=== PATIENT | female | born 1975 | race Caucasian/White ===

== ENCOUNTER 2020-09-20 13:15 | Inpatient (IN) | payer BC ==
[~2020-09-20] VITALS: Ht 172.7 cm; Wt 181.8 kg
[2020-09-20 14:19] LABS: HEMATOCRIT 43.2 % (37.0-47.0); HEMOGLOBIN 14.3 g/dl (12.5-16.0); MEAN CELL VOLUME 89 fl (80.0-100.0); MEAN CORPUSCULAR HEMOGLOBIN 29 pg (27.0-31.0); MEAN CORPUSCULAR HGB CONC 33 g/dl (33.0-37.0); MEAN PLATELET VOLUME 10.3 fl (7.4-10.4); PLATELET COUNT 481 K/mm3 (130-400); RED BLOOD COUNT 4.87 M/mm3 (4.10-5.30); REDCELL DISTRIBUTION WIDTH-CV 16.4 % (11.5-14.5)
[2020-09-20 15:00] LABS: ANISOCYTOSIS 1+; BAND 12 % (0-10); EOSINOPHIL 1 % (0-4); LYMPHOCYTE 6 % (20.0-51.0); NEUTROPHILS 81 % (42.0-75.2); PLATELET ESTIMATE INCREASED (NORMAL)
[2020-09-20 15:53] LABS: COLLECTION METHOD CATHETER
[2020-09-20 16:01] LABS: MUCOUS Present /lpf; PH 6 (5-8); SQUAMOUS EPITHELIAL None Seen /hpf; URINE APPEARANCE Cloudy; URINE BACTERIA None Seen /hpf; URINE BILIRUBIN Negative (NEGATIVE); URINE BLOOD 3+ (NEGATIVE); URINE COLOR Red; URINE GLUCOSE Negative (NEGATIVE); URINE KETONE Trace (NEGATIVE); URINE LEUKOCYTE ESTERASE 1+ (NEGATIVE); URINE NITRATE Negative (NEGATIVE); URINE PROTEIN(semi-quant) 2+ (NEGATIVE); URINE RBC >50 /hpf; URINE UROBILINOGEN Negative (NEGATIVE)
--- NOTE | 2020-09-20 20:20 | NUR ---
awake, alert, oriented x 4, able to make needs known, oriented to room, ambulates with sba, bilateral lower extremity lymphedema noted, updated on plan of care- verbalized understanding, reviewed privacy password, visiting hours and mask restrictions with patient and family- verbalized understanding.
[2020-09-20 23:08] LABS: ALBUMIN 3.4 gm/dL (3.5-5.0); BILIRUBIN,TOTAL 1.2 mg/dL (0.0-1.0); CALCIUM 8.8 mg/dL (8.4-10.2); CREATININE, serum 1.15 (0.52-1.25); POTASSIUM 3.9 mmol/L (3.4-5.0); TOTAL PROTEIN 6.8 gm/dL (6.4-8.2)
[2020-09-20 23:42] LABS: C-REACTIVE PROTEIN 20.7 mg/dL (0.0-0.9)
[2020-09-21 00:22] VITALS: BP 117/63; PULSE 114; TEMP 100
--- NOTE | 2020-09-21 00:40 | NUR ---
Call placed to Marley Kumar re: shivering, elevated temp, NON: see orders at this time. Updated patient on plan of care.
--- NOTE | 2020-09-21 02:33 | NUR ---
Vancomycin Initial Dosing Pharmacy Note Ordering provider: Gracie Griffith M, MD Indication/duration: Sepsis 2nd to UTI and possible foot infection Relevant comorbidities: HTN LABS: WBC = 37.2, SCr = 1.15 Recommendation: Will draw troughs and follow levels. Loading dose: 2 grams Maintenance dose: 1.75 grams every 12 hours Trough goal: 10-15 ug/mL
[2020-09-21 04:59] VITALS: BP 121/53; PULSE 78; TEMP 98
[2020-09-21 07:13] VITALS: BP 137/55; PULSE 80; TEMP 98.1
--- NOTE | 2020-09-21 09:16 | NUR ---
DOMO met with the patient and her , Marcus (ph#[phone]), to discuss discharge plan. The patient lives in [place] with her . She reports independence with ADLs and has a cane and walker available, if needed. The patient's PCP is Dr. Sourav Killian and she receives her medications from [facility]. She reports no difficulties obtaining her meds. The patient does not have a DPOA-HC and she was not interested in completing one at this time. The patient plans to return home with her upon discharge. The patient has a possible infected left heel wound. SW to continue to monitor. *Discharge plan: home with *
--- NOTE | 2020-09-21 09:30 | NUR ---
Pt assessment complete. Pt is laying in bed upon entry, she is A/O x4. Her breathing is even unlabored on RA. Pt denies SOB. Currently no pain, but reports coldness to LLE, N/T. No N/V, pt upset about her carb controlled diet stating she is not a diabetic. Discussed POC with patient and her . No further needs, call light within reach.
--- NOTE | 2020-09-21 10:39 | NUR ---
Initial visit; Patient thanked [employer] for looking in on her and keeping her in [employer]'s prayers.
[2020-09-21 11:13] VITALS: BP 142/51; PULSE 79; TEMP 100.2
[2020-09-21 14:38] LABS: BASO # 0.1 (0.0-0.2); BASO % 0.4 % (0.0-2.0); EOS # 0.1 (0.0-0.7); EOS % 0.6 % (0-4.0); GRAN % 80.9 % (42.2-75.2); LYMPH # 1.4 (1.2-3.4); LYMPH % 11.2 % (20.0-51.0); MEAN CELL VOLUME 89 fl (80.0-100.0); MEAN CORPUSCULAR HGB CONC 32 g/dl (33.0-37.0); MEAN PLATELET VOLUME 10.4 fl (7.4-10.4); MONO # 0.8 (0.1-0.6); MONO % 6.6 % (1.7-9.3); PLATELET COUNT 396 K/mm3 (130-400); RED BLOOD COUNT 4.07 M/mm3 (4.10-5.30); REDCELL DISTRIBUTION WIDTH-CV 16.3 % (11.5-14.5)
[2020-09-21 14:39] LABS: HEMATOCRIT 36.2 % (37.0-47.0); HEMOGLOBIN 11.5 g/dl (12.5-16.0); MEAN CORPUSCULAR HEMOGLOBIN 28 pg (27.0-31.0)
[2020-09-21 14:49] LABS: CALCIUM 8.8 mg/dL (8.4-10.2); CREATININE, serum 0.83 (0.52-1.25); POTASSIUM 3.9 mmol/L (3.4-5.0)
--- NOTE | 2020-09-21 15:48 | NUR ---
Report given to RUSH Osman.
[2020-09-21 16:42] VITALS: BP 130/40; PULSE 112; TEMP 98.2
--- NOTE | 2020-09-21 17:00 | NUR ---
Patient has had an ok day. PRN tylenol given for a headache rated a 5/10. Scheduled medications given. Dr. Elmore scraped calluses off of patient's left foot. Stage 1 ulcer measuring 10 mm by 7 mm located on the bottom of patient's left foot. Dressed with gauze and gauze wrap. Patient denies any further pain, discomfort, or needs at this time. Will continue to monitor. Call light in reach.
[2020-09-21 19:45] VITALS: BP 128/57; PULSE 88; TEMP 96.8
--- NOTE | 2020-09-21 20:37 | NUR ---
ALERT AND OX4. LEFT FOOT WRAPPED IN KERLEX AND GUAZE AFTER ORTHO CLEANED UP CALUS PRIOR TO SHIFT CHANGE. DENIES ANY PAIN IN FOOT, DOES HAVE GOOD BUT TOOK TYL AT 5PM THIS EVENING. PT REQ TO BE LEFT ALONE THIS GINA, PM MEDS GIVEN ALONG W VITALS. LIGHT DOWN. DOOR CLOSED. NEEDS MET.
[2020-09-22 04:44] VITALS: BP 123/57; PULSE 73; TEMP 98.6
[2020-09-22 07:05] LABS: BASO % 0.5 % (0.0-2.0); EOS # 0.1 (0.0-0.7); EOS % 1.1 % (0-4.0); GRAN # 6.5 (1.4-6.5); GRAN % 73.6 % (42.2-75.2); HEMATOCRIT 36.4 % (37.0-47.0); HEMOGLOBIN 11.6 g/dl (12.5-16.0); LYMPH # 1.5 (1.2-3.4); LYMPH % 16.5 % (20.0-51.0); MEAN CELL VOLUME 89 fl (80.0-100.0); MEAN CORPUSCULAR HEMOGLOBIN 29 pg (27.0-31.0); MEAN CORPUSCULAR HGB CONC 32 g/dl (33.0-37.0); MEAN PLATELET VOLUME 10.7 fl (7.4-10.4); MONO # 0.7 (0.1-0.6); MONO % 7.8 % (1.7-9.3); PLATELET COUNT 373 K/mm3 (130-400); RED BLOOD COUNT 4.07 M/mm3 (4.10-5.30); REDCELL DISTRIBUTION WIDTH-CV 16.2 % (11.5-14.5)
[2020-09-22 07:17] LABS: CREATININE, serum 0.82 (0.52-1.25); POTASSIUM 3.9 mmol/L (3.4-5.0)
[2020-09-22 07:59] VITALS: BP 144/74; PULSE 74; TEMP 99
[2020-09-22] MEDS ORDERED: DOXYCYCLINE HY100 MG PO (10:05)
[2020-09-22 12:06] VITALS: BP 130/60; PULSE 78; TEMP 98.8
--- NOTE | 2020-09-22 14:56 | NUR ---
Scheduled medications given. Shift assessment preformed. Patient given a PRN tylenol for a headache rated a 4/10. Increased erythema noted on left lower extremity. ABDIFATAH Dinh notified. PICC line DC'd by RUSH Aguilar. Discharge instructions/education given. Patient denies any further questions or concerns. VSS.
--- NOTE | 2020-09-22 15:20 | NUR ---
Patient escorted from building by [facility] via wheelchair.
== END 2020-09-22 15:21 | disposition home or self-care (01) | DRG 872 ==
LOC: COL.ER 13:15 → MEDICAL 17:15
PROVIDERS: Nurse Practitioner; ADMIT Internal Medicine
PROC: 02HV33Z Insertion of Infusion Device into Superior Vena Cava, Percutaneous Approach (ICD-10-PCS; principal; 2020-09-21)
DX: A41.9 Sepsis, unspecified organism (principal); N39.0 Urinary tract infection, site not specified; D64.9 Anemia, unspecified; E28.2 Polycystic ovarian syndrome; E66.01 Morbid (severe) obesity due to excess calories; G47.33 Obstructive sleep apnea (adult) (pediatric); R73.9 Hyperglycemia, unspecified; L89.891 Pressure ulcer of other site, stage 1; E66.9 Obesity, unspecified; Z20.822 Contact with and (suspected) exposure to COVID-19
CPT/HCPCS: 99222-AI; 99232-AI; 99239; C1751; J0696; J1650; J2543; J3370; J7030; J7040; J7050